=== PATIENT | male | born 1995 | race Caucasian/White ===

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

== ENCOUNTER 2017-02-02 00:16 | Emergency (ER) | payer OTHER ==
[~2017-02-02] VITALS: Ht 175.3 cm; Wt 90.4 kg
[~2017-02-02 00:16] MED LIST changes: +NORCO 5/3251 TABLET PO; +VALIUM5 MG PO
[2017-02-02 00:42] LABS: HEMATOCRIT 46.4 % (38.0-50.0); MCH 29.7 PG (29.0-34.0); MCHC 34.5 G/DL (30.0-36.0); MCV 86.2 FL (86-99); MEAN PLAT.VOLUME 10.3 uM^3 (9.0-12.4); PLATELET COUNT 187 K/uL (156-360); RBC DIS.WIDTH-CV 11.9 % (11.8-14.6); RBC DIS.WIDTH-SD 37.3 % (39-53); RED BLOOD COUNT 5.38 M/uL (4.00-5.50); WHITE BLOOD COUNT 6.6 K/uL (4.1-10.2)
[2017-02-02 00:52] LABS: CHLORIDE 105 mEq/L (99-109); POTASSIUM 4.2 mEq/L (3.7-5.4); SODIUM 143 mEq/L (136-147)
[2017-02-02 00:54] LABS: GLUCOSE 105 mg/dL (70-99)
[2017-02-02 00:55] LABS: ANION GAP 14 MEQ/L (2-14)
[2017-02-02 00:56] LABS: TOTAL BILIRUBIN 0.4 mg/dL (0.0-1.0)
[2017-02-02 00:57] LABS: SERUM ETHYL ALCOHOL 231 mg/dL
[2017-02-02 00:58] LABS: ALKALINE PHOSPHATASE 65 IU/L (3-129); GFR ESTIMATE (CALCULATED) > 59 mL/min/
[2017-02-02 01:00] LABS: UREA NITROGEN (BUN) 14 mg/dL (9-23)
[2017-02-02 01:01] LABS: SALICYLATE < 5.0 MG/DL (15-30)
[2017-02-02 01:02] LABS: LIPASE 17 U/L (1.0-51.0)
[2017-02-02 01:21] LABS: PHENCYCLIDINE NEGATIVE (25 ng/mL); THC CANNABINOIDS NEGATIVE (50 ng/mL)
[2017-02-02 01:22] LABS: ADD MEDTOX COMMENT Y; AMPHETAMINE NEGATIVE (500 ng/mL); BARBITURATES NEGATIVE (200 ng/mL); BENZODIAZEPINES NEGATIVE (150 ng/mL); COCAINE PRESUMPTIVE POSITIVE (150 ng/mL); INTERNAL CONTROLS VALID? YES; METHADONE NEGATIVE (200 ng/mL); METHAMPHETAMINE NEGATIVE (500 ng/mL); OPIATES (MORPHINE) NEGATIVE (100 ng/mL); OXYCODONE NEGATIVE (100 ng/mL); PROPOXYPHENE NEGATIVE (300 ng/mL); TRICYCLIC ANTIDEPRESSANTS NEGATIVE (300 ng/mL)
[2017-02-02 02:10] VITALS: BP 132/82
== END 2017-02-02 02:11 | disposition home or self-care (01) ==
LOC: EME → EDBD 00:16 → EME 02:11
PROVIDERS: Emergency Medicine
DX: F10.129 Alcohol abuse with intoxication, unspecified (principal); F69 Unspecified disorder of adult personality and behavior; F14.10 Cocaine abuse, uncomplicated; F90.9 Attention-deficit hyperactivity disorder, unspecified type; F31.9 Bipolar disorder, unspecified; Z86.61 Personal history of infections of the central nervous system
CPT/HCPCS: 71010; 80053; 83690; 84999; 85027; 99281; 99284; G0480

== ENCOUNTER 2017-10-19 17:22 | Emergency (ER) | payer OTHER ==
[~2017-10-19] VITALS: Ht 167.6 cm; Wt 94.2 kg
[~2017-10-19 17:22] MED LIST changes: +FLEXERIL5 MG PO; +INDOCIN50 MG PO
[2017-10-19] MEDS ORDERED: MOTRIN600 MG PO (18:43)
[2017-10-19] MEDS ORDERED: ULTRAM50 MG PO (18:44)
[2017-10-19 18:57] VITALS: BP 133/66
== END 2017-10-19 18:58 | disposition home or self-care (01) ==
LOC: EME 17:22
DX: S60.221A Contusion of right hand, initial encounter (principal); W18.30XA Fall on same level, unspecified, initial encounter; Y93.02 Activity, running; Z88.0 Allergy status to penicillin
CPT/HCPCS: 73130; 99281; 99284